=== PATIENT | female | born 1995 | race Caucasian/White ===

== ENCOUNTER → 2017-09-11 | Outpatient (CLI) | payer OTHER ==
[~2017-09-11] VITALS: Ht 177.8 cm; Wt 62.9 kg
[~2017-09-11] MED LIST: BCPILLS PO; ESCI1TAB10 PO; FAMO20TA11 PO; ONDA4TAB10 SL
[2017-09-11 14:52] VITALS: BP 100/62; PULSE 73; Ht 177.8 cm; Wt 62.9 kg
== END | disposition home or self-care (01) ==
LOC: C.NEUR 13:15
PROVIDERS: ATTEND Internal Medicine Pulmonary Disease
DX: G47.411 Narcolepsy with cataplexy (principal)